=== PATIENT | female | born 1960 | race Caucasian/White ===

== ENCOUNTER 2021-10-19 17:33 | Emergency (ER) | payer BC ==
--- NOTE | 2021-10-19 17:48 | EDM.PDOC ---
<Salomon Murphy - Last Filed: 10/19/21 18:01> ED HPI GENERAL MEDICAL PROBLEM - General Chief Complaint: Neuro Symptoms/Deficits Stated Complaint: CONFUSED Time Seen by Provider: 10/19/21 17:46 Source of Information: Reports: Patient History Limitations: Reports: No Limitations - History of Present Illness INITIAL COMMENTS - FREE TEXT/NARRATIVE: Patient is a 61-year-old female who presents today for altered mental status. Per patient she has been confused for what he believes started today. He states it could have started earlier today's neighbors told him that she came over to the house putting shoes on. States she has been forgetting things lightheaded blowdry hair but not knowing where certain arms are in the house that she normally does. Patient will state her name or where she is at. She is moving all extremities denies any vision changes speech changes or other complaints. Patient does have history of MS with migraine take any medications. - Related Data Allergies Allergy/AdvReac Type Severity Reaction Status Date / Time No Known Allergies Allergy Verified 10/19/21 17:56 Home Meds: Home Meds Olmesartan/Hydrochlorothiazide [Olmesartan-Hctz 40-25 mg Tab] 1 tab PO DAILY 10/19/21 [History] amLODIPine Besylate [Amlodipine Besylate] 10 mg PO DAILY 10/19/21 [History] ED ROS GENERAL - Review of Systems Review Of Systems: See Below Constitutional: Reports: No Symptoms HEENT: Reports: No Symptoms Respiratory: Reports: No Symptoms Cardiovascular: Reports: No Symptoms Endocrine: Reports: No Symptoms GI/Abdominal: Reports: No Symptoms : Reports: No Symptoms Musculoskeletal: Reports: No Symptoms Skin: Reports: No Symptoms Neurological: Reports: Confusion Psychiatric: Reports: No Symptoms Hematologic/Lymphatic: Reports: No Symptoms Immunologic: Reports: No Symptoms ED EXAM, NEURO - Physical Exam Exam: See Below Exam Limited By: Altered Mental Status General Appearance: Alert, WD/WN, No Apparent Distress Eye Exam: Bilateral Eye: EOMI, PERRL Ears: Normal External Exam Throat/Mouth: Normal Inspection Head Exam: Atraumatic, Normocephalic Neck: Normal Inspection Respiratory/Chest: No Respiratory Distress, Lungs Clear, Normal Breath Sounds Cardiovascular: Normal Peripheral Pulses, Regular Rate, Rhythm GI/Abdominal: Normal Bowel Sounds, Soft, Non-Tender Neurological: Alert, Normal Mood/Affect, Normal Dorsiflexion, Oriented x 3 Extremities: Normal Inspection Psychiatric: Normal Affect #1 Interpretation EKG Date: 10/19/21 Time: 17:56 Rhythm: NSR Rate (Beats/Min): 71 ST-T: Normal Departure - Departure Disposition: Home, Self-Care 01 Clinical Impression: Confusion - Discharge Information Instructions: Confusion Forms: ED Department Discharge Additional Instructions: Your seen and evaluated in the ER today secondary to transient episode of confusion that appears to have completely resolved during your ER visit. As we discussed, it is unclear whether or not he might have some mild dehydration that precipitated this as your creatinine is slightly elevated. Please go home and drink plenty of fluids. Please hold your new antihypertensive medications and keep a close eye on your blood pressure. Please call your family doctor to see if they want you to reinitiate the new medication or not. As we discussed, this may also be related to a possible seizure with postictal confusion. Please return to the ED if you start developing any new or concerning symptoms or if your confusion should return. The following information is given to patients seen in the emergency department who are being discharged to home. This information is to outline your options for follow-up care. We provide all patients seen in our emergency department with a follow-up referral. The need for follow-up, as well as the timing and circumstances, are variable depending upon the specifics of your emergency department visit. If you don't have a primary care physician on staff, we will provide you with a referral. We always advise you to contact your personal physician following an emergency department visit to inform them of the circumstance of the visit and for follow-up with them and/or the need for any referrals to a consulting specia list. The emergency department will also refer you to a specialist when appropriate. This referral assures that you have the opportunity for follow-up care with a specialist. All of these measure are taken in an effort to provide you with optimal care, which includes your follow-up. Under all circumstances we always encourage you to contact your private physician who remains a resource for coordinating your care. When calling for follow-up care, please make the office aware that this follow-up is from your recent emergency room visit. If for any reason you are refused follow-up, please contact the [facility] Emergency Department at and asked to speak to the emergency department charge nurse. [facility] [address] [place] [address] [facility] [address] [place] [address] - Assessment/Plan Plan: Patient is a 61-year-old male who presents today for confusion with mental status. Patient has no neurological deficit on exam. Patient answer some questions appropriately. Will obtain CT head labs and reassess. <Govind Garibay - Last Filed: 10/19/21 20:05> ED HPI GENERAL MEDICAL PROBLEM - History of Present Illness INITIAL COMMENTS - FREE TEXT/NARRATIVE: 8 PM: Signout received at [address] Murphy. This is a 61-year-old female with history significant for MS and hypertension who presents ER today secondary to confusion. Patient reports that at home she felt extremely confused so she walked over to her neighbor's house for assistance. Patient reports that she does have a history of MS however she has stopped taking all her MS medications over the last year and she reports that she has never felt better. Patient reports that she is to have headaches in the past from her seizure medications and ever since she stopped her medications she has been feeling great. Patient reports that she is been in her usual state of great health up until today when she started feeling extremely confused. Patient reports that in the past that she has been on Keppra for seizure disorder and that her last seizure disorder was approximately 12 years ago. Patient denies any loss of bowel or bladder function, patient denies any head injury, patient denies any biting of tongue. Patient reports she does not feel that she had a seizure today although it is possible. When I reevaluated the patient at 8 PM, the patient reports that she feels completely back to baseline. Her is at bedside and concurs with her assessment and reports that she is completely back to her usual state of mental status. It is unclear exactly what happened to cause her to have the episodes of confusion at home however currently she reports that she feels normal and is requesting to be discharged home. I have discussed with the patient that it is unclear the cause of her symptoms. I have discussed with him getting a carbon monoxide monitor at home. She reports that she has concerns regarding black mold which they are assessing at this time at home. I have also discussed with her the possibility of a small stroke that is resolved by the time I evaluated her. Her CT scan of her head has been unremarkable and all her labs are within normal limits. I have also discussed with her the possibility that this might have been a seizure with a postictal state. Family reports that she does have good follow-up of care and that her will be at home and they both are requesting to be discharged home and do not wish to be here any further. She reports that she was started on medication a couple days ago for hypertension which included a diuretic. Patient clinically is hemodynamically stable her blood pressure currently is 126/76. Her heart rate is 94. Patient does appear to be slightly dehydrated with dry lips. Her creatinine is slightly elevated but do not have a baseline. I have recommended IV fluids and a urinalysis for assessment of hydration and infection. Patient is declining the IV fluids and is wanting to go home and says that she can berry picker a bottle of Gatorade on the way home and that she would prefer to drink it rather than get IV fluids here in the ED. Given the patient's current mentation and her agreeing with her baseline mentation I feel that the patient is stable to be discharged home and I will defer to her judgment. Utilizing shared decision making she will be discharged home with instructions to return to the ER immediately if she develops any new or concerning symptoms. Reassessment at the time of disposition demonstrates that the patient is in no acute distress. The patient has remained stable throughout the entire ED visit and is without objective evidence for acute process requiring urgent intervention or hospitalization. The patient is stable for discharge, counseling is provided as documented above, discussed symptomatic treatment and specific conditions for return. I have spoken with the patient/caregiver and discussed todays findings, in addition to providing specific details for the plan of care. Questions are answered and there is agreement with the plan. Course - Vital Signs Last Recorded V/S: Last Vital Signs Temp 96.7 F L 10/19/21 17:51 Pulse 72 10/19/21 18:11 Resp 18 10/19/21 18:11 BP 140/87 10/19/21 18:11 Pulse Ox 97 10/19/21 18:11 - Orders/Labs/Meds Orders: Active Orders 24 hr Category Date Time Status DRUG SCREEN, URINE [URCHEM] Stat Lab 10/19/21 17:47 Ordered UA W/KEHINDE RFLX IF INDICATED [URIN] Stat Lab 10/19/21 17:47 Ordered Labs: Laboratory Tests 10/19/21 10/19/21 10/19/21 Range/Units 18:09 18:09 18:09 WBC 9.45 (4.0-11.0) K/uL RBC 4.79 (4.30-5.90) M/uL Hgb 14.5 (12.0-16.0) g/dL Hct 44.2 (36.0-46.0) % MCV 92.3 (80.0-98.0) fL MCH 30.3 (27.0-32.0) pg MCHC 32.8 (31.0-37.0) g/dL RDW Std Deviation 46.6 (28.0-62.0) fl RDW Coeff of Julio Cesar 14 (11.0-15.0) % Plt Count 310 (150-400) K/uL MPV 9.70 (7.40-12.00) fL Neut % (Auto) 81.1 H (48.0-80.0) % Lymph % (Auto) 9.2 L (16.0-40.0) % [place] % (Auto) 8.9 (0.0-15.0) % Eos % (Auto) 0.5 (0.0-7.0) % Baso % (Auto) 0.3 (0.0-1.5) % Neut # (Auto) 7.7 H (1.4-5.7) K/uL Lymph # (Auto) 0.9 (0.6-2.4) K/uL [place]enton # (Auto) 0.8 (0.0-0.8) K/uL Eos # (Auto) 0.1 (0.0-0.7) K/uL Baso # (Auto) 0.0 (0.0-0.1) K/uL Nucleated RBC % 0.0 /100WBC Nucleated RBCs # 0 K/uL INR 1.06 Sodium 139 (136-145) mmol/L Potassium 3.9 (3.5-5.1) mmol/L Chloride 101 (98-107) mmol/L Carbon Dioxide 26.1 (21.0-32.0) mmol/L BUN 23 H (7.0-18.0) mg/dL Creatinine 1.5 H (0.6-1.0) mg/dL Est Cr Clr Drug Dosing 40.74 mL/min Estimated GFR (MDRD) 35.5 ml/min Glucose 107 H (74-106) mg/dL Calcium 9.9 (8.5-10.1) mg/dL Phosphorus 3.5 (2.6-4.7) mg/dL Magnesium 2.0 (1.8-2.4) mg/dL Total Bilirubin 0.4 (0.2-1.0) mg/dL AST 19 (15-37) IU/L ALT 24 (14-63) IU/L Alkaline Phosphatase 63 (46-116) U/L Total Protein 8.6 H (6.4-8.2) g/dL Albumin 4.1 (3.4-5.0) g/dL Globulin 4.5 H (2.6-4.0) g/dL Albumin/Globulin Ratio 0.9 (0.9-1.6) Ethyl Alcohol < 3.0 mg/dL Departure - Departure Time of Disposition: 20:04 Condition: Good Sepsis Event Note (ED) - Focused Exam Vital Signs: Vital Signs Temp Pulse Resp BP Pulse Ox 10/19/21 18:11 72 18 140/87 97 10/19/21 17:51 96.7 F L 76 18 140/87 98
[2021-10-19 18:44] LABS: BLOOD UREA NITROGEN,BUN 23 mg/dL (7.0-18.0); CARBON DIOXIDE,CO2 26.1 mmol/L (21.0-32.0); CHLORIDE,CL 101 mmol/L (98-107); GLUCOSE RANDOM 107 mg/dL (74-106); POTASSIUM,K 3.9 mmol/L (3.5-5.1); SODIUM,NA 139 mmol/L (136-145)
--- NOTE | 2021-10-19 18:57 | CT ---
Indication: Altered mental status Technique: Nonenhanced axial CT imaging through the head. Sagittal and coronal reconstructions are provided. Comparison: None Findings: There is no evidence of intracranial hemorrhage or cerebral edema. Cottrell-white matter differentiation is preserved. Focal encephalomalacia is noted in the right frontal white matter, consistent with old insult. The ventricles are normal in size. The basal cisterns are patent. The calvarium is intact. The visualized paranasal sinuses and mastoid air cells are aerated. Impression: No acute intracranial process. Please note that all CT scans at this facility use dose modulation, iterative reconstruction, and/or weight-based dosing when appropriate to reduce radiation dose to as low as reasonably achievable. Dictated by Dave Patel MD @ 10/19/2021 6:57:16 PM (Electronically Signed)
== END 2021-10-19 20:22 | disposition home or self-care (01) ==
LOC: MW.ED 17:33
DX: R41.0 Disorientation, unspecified (principal)
CPT/HCPCS: 36415; 70450; 70450-26; 80053; 80305-QW; 80307; 83735; 84100; 85025; 85610; 93005; 99285-25